=== PATIENT | female | born 1975 | race African-American/Black ===

== ENCOUNTER 2018-01-15 11:29 | Emergency (ER) | payer OTHER ==
[2018-01-15 11:37] VITALS: BP 123/72; PULSE 72; TEMP 98.2; BMI 29.0
--- NOTE | 2018-01-15 11:50 | PDOC ---
History of Present Illness - General Chief Complaint: Ear Problem Stated Complaint: EAR PAIN Time Seen by Provider: 01/15/18 11:42 - History of Present Illness Initial Comments: 42 y/o F with 6 days of sinus pressure and congestion. Hx of chronic sinusitis. No associated fever. She does have chills and sweats at times. She has no comorbidities 01/15/18 11:47 Past History - Past Medical History Allergies/Adverse Reactions: Allergies Allergy/AdvReac Type Severity Reaction Status Date / Time No Known Allergies Allergy Verified 01/15/18 11:37 Home Medications: Ambulatory Orders Amox-Tr/K Cl [Augmentin - 875Mg Tablet] 1 tab PO BID #20 tablet 01/15/18 Methylprednisolone [Medrol Dose Jarrod] 4 mg PO ASDIR #21 tablet 01/15/18 Asthma: Yes COPD: No DVT: No Other medical history: sinusitis - Suicide/Smoking/Psychosocial Hx Smoking Status: No Smoking History: Never smoked Have you smoked in the past 12 months: No Number of Cigarettes Smoked Daily: 0 Information on smoking cessation initiated: No Hx Alcohol Use: No Drug/Substance Use Hx: No Substance Use Type: None Review of Systems - Review of Systems Constitutional: Yes: Chills, Night Sweats. No: Fever HEENTM: Yes: See HPI All Other Systems: Reviewed and Negative *Physical Exam - Vital Signs Last Vital Signs Temp Pulse Resp BP Pulse Ox 98.2 F 72 18 123/72 100 01/15/18 11:35 01/15/18 11:35 01/15/18 11:35 01/15/18 11:35 01/15/18 11:35 - Physical Exam Comments: HEAD: NC/AT, frontal sinus tenderness EYES: Conjuntiva clear Ears: Canals and TM's normal NOSE: No d/c THROAT: Moist mucous membrances, oral pharanx clear, uvula midline NECK: Supple without adenopathy CARDIAC: S1 S2 LUNGS: CTA Full and Equal breath sounds ABDOMEN: Soft NT ND MS: Full ROM in all joints without edema NEUROLOGIC: No gross sensory or motor deficits, NVID SKIN: Normal color and temperature no lesions or rashes 01/15/18 11:50 *DC/Admit/Observation/Transfer Diagnosis at time of Disposition: Sinusitis - Discharge Dispostion Disposition: HOME Condition at time of disposition: Stable Decision to Admit order: No - Referrals Referrals: Natasha Gonzalez MD [Primary Care Provider] - - Patient Instructions Printed Discharge Instructions: DI for Sinusitis, Sinusitis Additional Instructions: Return to the emergency room should symptoms worsen or go unresolved. Please take the medication as directed. Please follow-up with your primary care physician in 2-3 days for further evaluation and treatment options. - Post Discharge Activity
== END 2018-01-15 11:59 | disposition home or self-care (01) ==
LOC: JERFT 11:29
DX: J32.9 Chronic sinusitis, unspecified (principal)
CPT/HCPCS: 99281-25

== ENCOUNTER 2018-02-19 11:35 | Emergency (ER) | payer OTHER ==
[2018-02-19 11:40] VITALS: BP 107/77; PULSE 80; TEMP 98.6; BMI 23.5
--- NOTE | 2018-02-19 11:57 | PDOC ---
History of Present Illness - General Chief Complaint: Eye Problem Stated Complaint: EYE PAIN Time Seen by Provider: 02/19/18 11:48 - History of Present Illness Initial Comments: 42-year-old female with past medical history significant only for seasonal ALLERGIES presents for evaluation of right eye irritation times one day without associated symptoms. She is otherwise healthy 02/19/18 11:54 Past History - Past Medical History Allergies/Adverse Reactions: Allergies Allergy/AdvReac Type Severity Reaction Status Date / Time No Known Allergies Allergy Verified 02/19/18 11:39 Home Medications: Ambulatory Orders Olopatadine HCl [Pataday] 1 drop OU DAILY #1 bottle 02/19/18 Asthma: Yes COPD: No DVT: No - Suicide/Smoking/Psychosocial Hx Smoking Status: No Smoking History: Never smoked Have you smoked in the past 12 months: No Number of Cigarettes Smoked Daily: 0 Hx Alcohol Use: No Drug/Substance Use Hx: No Substance Use Type: None Review of Systems - Review of Systems HEENTM: Yes: See HPI, Tearing *Physical Exam - Vital Signs Last Vital Signs Temp Pulse Resp BP Pulse Ox 98.6 F 80 16 107/77 99 02/19/18 11:39 02/19/18 11:39 02/19/18 11:39 02/19/18 11:39 02/19/18 11:39 - Physical Exam Comments: 02/19/18 11:54 HEAD: NC/AT EYES: Conjuntiva injected on the right slightly injected on the left, PERRL EOMI Ears: Canals and TM's normal NOSE: No d/c THROAT: Moist mucous membrances, oral pharanx clear, uvula midline NECK: Supple without adenopathy CARDIAC: S1 S2 LUNGS: CTA Full and Equal breath sounds ABDOMEN: Soft NT ND MS: Full ROM in all joints without edema NEUROLOGIC: No gross sensory or motor deficits, NVID SKIN: Normal color and temperature no lesions or rashes Medical Decision Making - Medical Decision Making 02/19/18 11:55 This is an ALLERGIC conjunctivitis the patient is states she slept with her window open last night and her eyes were irritated when she woke up. Mast cell stabilizer eyedrops follow-up with ophthalmology *DC/Admit/Observation/Transfer Diagnosis at time of Disposition: Allergic conjunctivitis - Discharge Dispostion Disposition: HOME Condition at time of disposition: Stable Decision to Admit order: No - Referrals Referrals: Natasha Gonzalez MD [Primary Care Provider] - Isabell Dave MD [Staff Physician] - - Patient Instructions Printed Discharge Instructions: DI for Conjunctivitis Additional Instructions: Please use the eyedrops as directed. Follow-up with ophthalmology in one to 2 days for further evaluation and treatment options and return to the emergency room should symptoms worsen or go unresolved. - Post Discharge Activity
== END 2018-02-19 12:06 | disposition home or self-care (01) ==
LOC: JERFT 11:35
DX: H10.10 Acute atopic conjunctivitis, unspecified eye (principal); J45.909 Unspecified asthma, uncomplicated
CPT/HCPCS: 99281-25

== ENCOUNTER 2020-07-13 07:39 | Emergency (ER) | payer OTHER ==
[2020-07-13] MEDS ORDERED: methylPREDNISolone NA SUCC 125 MG/2 ML VIAL ONE (07:57)
[2020-07-13] MEDS ORDERED: MAGNESIUM 1GM/D5W - 1 GM/100 ML IVPB IVPB ONE ×2 (07:57→09:40)
[2020-07-13 07:58] VITALS: BMI 29.2
[2020-07-13] MEDS ORDERED: ALBUTEROL SO4 2.5/IPRATROPIUM 0.5 INH SOL 3 ML VIAL.NEB. NEB ONE (08:25)
[2020-07-13] MEDS ORDERED: MAGNESIUM SULF 50% (8.12 MEQ/2 ML-1 GM VIAL) IVPB ONE (08:25)
[2020-07-13] MEDS ORDERED: methylPREDNISolone NA SUCC 125 MG/2 ML VIAL IVPUSH ONE (08:25)
[2020-07-13] MEDS ORDERED: DEXTROSE 5%-0.45% SALINE 1,000 ML IV SCH (09:00)
[2020-07-13] MEDS ORDERED: ALBUTEROL SO4 0.083% IH SOL 2.5 MG/3 ML VIAL.NEB. NEB ONE ×2 (09:40→11:17)
[2020-07-13] MEDS ORDERED: ACETAMINOPHEN INJECTION 100 ML IVPB ONE (09:47)
[2020-07-13] MEDS ORDERED: ACETAMINOPHEN 1000 MG/100 ML BAG IVPB ONE (11:17)
[2020-07-13 11:20] VITALS: BP 124/70; PULSE 88; TEMP 97.9
== END 2020-07-13 11:21 | disposition home or self-care (01) ==
LOC: JER 07:39
PROC: 3E033GC Introduction of Other Therapeutic Substance into Peripheral Vein, Percutaneous Approach (ICD-10-PCS; principal; 2020-07-13)
PROC: 3E0F7GC Introduction of Other Therapeutic Substance into Respiratory Tract, Via Natural or Artificial Opening (ICD-10-PCS; principal; 2020-07-13)
PROC: 3E0337Z Introduction of Electrolytic and Water Balance Substance into Peripheral Vein, Percutaneous Approach (ICD-10-PCS; principal; 2020-07-13)
DX: J45.901 Unspecified asthma with (acute) exacerbation (principal)
CPT/HCPCS: 99284-25; C9803; J0131; U0003